=== PATIENT | female | born 1960 | race Two or more races ===

== ENCOUNTER 2023-07-27 09:55 | Emergency (ER) | payer OTHER ==
[~2023-07-27] VITALS: Ht 160 cm; Wt 53.5 kg
== END 2023-07-27 12:58 | disposition home or self-care (01) ==
LOC: ER 09:55
DX: S92.354A Nondisplaced fracture of fifth metatarsal bone, right foot, initial encounter for closed fracture (principal); W19.XXXA Unspecified fall, initial encounter; Y93.9 Activity, unspecified; Y92.89 Other specified places as the place of occurrence of the external cause; Y99.9 Unspecified external cause status; Z88.2 Allergy status to sulfonamides